=== PATIENT | female | born 1990 | race Caucasian/White ===

== ENCOUNTER 2023-02-13 03:29 | Emergency (ER) | payer OTHER, MEDICAID, SELFPAY ==
[2023-02-13] VITALS (7 sets, daily range): BP systolic 98–113; BP diastolic 56–75; PULSE 73–104; RESP 16–28; TEMP 37; O2SAT 92–99; BMI 20.3
--- NOTE | 2023-02-13 03:35 | W.ED.GENADLT ---
HPI - General Adult General: Chief complaint: Overdose Stated complaint: overdose Time Seen by Provider: 02/13/23 03:30 Source: patient and EMS Mode of arrival: EMS Limitations: no limitations History of Present Illness: 32-year-old female states that she had a history of drug abuse have been clean and has relapsed on meth over the last 3 days. States she has been using meth the last 3 days had showed up to someone's house who called EMS. Patient is clearly under influence of methamphetamine she will answer questions but is quite anxious here she denies any overdose attempt denies suicidal or homicidal. Associated symptoms: Deny chest pain, dyspnea, headache(s), nausea, rash or vomiting Review of Systems Const: Denies: fever(s), chills, body aches or change in appetite Eyes: Denies: blurry vision or eye discomfort ENMT: Denies: throat pain or dental pain Card: Denies: chest pain Resp: Denies: dyspnea GI: Denies: abdominal pain, nausea, vomiting or diarrhea : Denies: dysuria Musc: Denies: neck pain or back pain Skin/Breast: Denies: rash Neuro: Denies: headache(s) Psych: Denies: depression David/Lymph: Denies: easy bruising All/Imm: Denies: urticaria Physical Exam Const: COMMON NORMALS: patient oriented x3 OTHER: anxious under influence of meth HENMT: COMMON NORMALS: normocephalic and atraumatic HEAD & SCALP: normocephalic and atraumatic Eye: COMMON NORMALS: Equal, round and reactive pupils present and EOMs intact bilaterally PUPIL: Yes Equal, round and reactive pupils present Neck/C-Spine: COMMON NORMALS: full ROM and supple Chest: COMMONS NORMALS: normal inspection of the chest and normal palpation of entire chest wall Resp: COMMON NORMALS: normal respiratory effort, No retractions, No use of accessory muscles and clear to auscultation bilaterally AUSCULTATION: clear to auscultation bilaterally Cardio: COMMON NORMALS: regular rate, regular rhythm and No murmurs present (Cardio) RATE: regular rate RHYTHM: regular rhythm GI: COMMON NORMALS: Normal to inspection, nondistended, normoactive bowel sounds present, Soft to palpation, non-tender and no masses PALPATION: Yes Soft to palpation Extremity: COMMON NORMALS: normal to inspection and full ROM Neuro: COMMON NORMALS: patient oriented x3, moves all extremities and no focal motor deficits Psych: COMMON NORMALS: mental status grossly normal, Normal thought process present and cooperative THOUGHT PROCESS: Normal thought process present Skin: COMMON NORMALS: no rashes or lesions noted and no wounds GENERAL SKIN EXAM: no rashes or lesions noted Course Vital Signs: Vital signs: Vital Signs Temperature 98.6 F 02/13/23 03:30 Pulse Rate 80 02/13/23 13:04 Respiratory Rate 16 02/13/23 09:57 Blood Pressure 113/75 02/13/23 13:04 Pulse Oximetry 96 02/13/23 09:57 Oxygen Delivery Me thod Room Air 02/13/23 09:57 MDM - General Adult Medical Decision Making Patient presents with methamphetamine abuse she is not psychotic she is improved here after Ativan she is ambulatory she is stable for discharge at this time. Lab Data 02/13/23 03:40 02/13/23 03:40 Laboratory Results WBC 10.54 10^3/uL (3.29-11.43) 02/13/23 03:40 RBC 4.99 10^6/uL (3.85-5.65) 02/13/23 03:40 Hgb 15.00 g/dL (11.27-16.99) 02/13/23 03:40 Hct 44.0 % (36-47) 02/13/23 03:40 MCV 88.2 fl (85-98) 02/13/23 03:40 MCH 30.1 pg (27-33) 02/13/23 03:40 MCHC 34.1 g/dL (30-55) 02/13/23 03:40 RDW 12.3 % (12.1-15.1) 02/13/23 03:40 Plt Count 218 10^3/cmm (157-399) 02/13/23 03:40 MPV 10.0 fL (7.4-10.4) 02/13/23 03:40 Neut % (Auto) 66.2 % 02/13/23 03:40 Lymph % (Auto) 22.6 % 02/13/23 03:40 [place] % (Auto) 7.8 % 02/13/23 03:40 Eos % (Auto) 2.4 % 02/13/23 03:40 Baso % (Auto) 0.7 % 02/13/23 03:40 Neut # (Auto) 6.99 10^3/uL (1.8-7.7) 02/13/23 03:40 Lymph # (Auto) 2.4 10^3/uL (0.8-4.8) 02/13/23 03:40 [place] # (Auto) 0.8 10^3/uL (0.2-0.9) 02/13/23 03:40 Eos # (Auto) 0.3 10^3/uL (0.0-0.8) 02/13/23 03:40 Baso # (Auto) 0.1 10^3/uL (0.0-0.1) 02/13/23 03:40 Nucleated RBC % (auto) 0 % 02/13/23 03:40 Nucleated RBCs # 0.0 /100WBC 02/13/23 03:40 Sodium 140 mmol/L (136-145) 02/13/23 03:40 Potassium 3.2 mmol/L (3.5-5.1) L 02/13/23 03:40 Chloride 99 mmol/L (98-107) 02/13/23 03:40 Carbon Dioxide 29 mmol/L (22-29) 02/13/23 03:40 Anion Gap 15.2 (5-19) 02/13/23 03:40 BUN 16 mg/dL (6-20) 02/13/23 03:40 Creatinine 0.9 mg/dL (0.5-0.9) 02/13/23 03:40 GFR Calculation 72.1 mL/min (90-130) L 02/13/23 03:40 Glucose 91 mg/dL (65-115) 02/13/23 03:40 Calculated Osmolality 291 mOsm/kg (285-295) 02/13/23 03:40 Calcium 9.9 mg/dL (8.5-10.5) 02/13/23 03:40 Total Bilirubin 0.6 mg/dL (0.15-1.2) 02/13/23 03:40 AST 49 U/L (0-32) H 02/13/23 03:40 ALT 31 U/L (0-33) 02/13/23 03:40 Alkaline Phosphatase 61 U/L (35-105) 02/13/23 03:40 Total Protein 7.1 g/dL (6.6-8.7) 02/13/23 03:40 Albumin 4.7 g/dL (3.5-5.2) 02/13/23 03:40 Globulin 2.4 g/dL (1.3-4.6) 02/13/23 03:40 HCG, Qual Negative (Negative) 02/13/23 03:40 Salicylates 1.6 mg/dL (3-10) L 02/13/23 03:40 Acetaminophen < 5.0 ug/mL (10-30) L 02/13/23 03:40 Ethyl Alcohol < 10 mg/dL (0-10) 02/13/23 03:40 Discharge Plan Discharge Patient Disposition: Home Clinical Impression: Methamphetamine abuse Condition: Stable Discharge Orders: Discharge ED (Routine); Ordered 02/13/23 Ordered By: J Luis Abdul Discharge Diet: Advance as tolerated Discharge Activity: Resume usual activity Patient Instructions: Methamphetamine Use Disorder (ED) Coding Level of Care Code ED Audit Lead for Juany Stone
[2023-02-13] MEDS: LORazepam 2 mg/mL INJ 1 mL IV (03:38)
[2023-02-13 03:44] LABS: Basophils # 0.1 10^3/uL (0.0-0.1); Basophils % 0.7 %; Eosinophils # 0.3 10^3/uL (0.0-0.8); Eosinophils % 2.4 %; Lymphocytes # 2.4 10^3/uL (0.8-4.8); Lymphocytes % 22.6 %; Mean Corpuscular HGB Conc 34.1 g/dL (30-55); Mean Corpuscular Hemoglobin 30.1 pg (27-33); Mean Corpuscular Volume 88.2 fl (85-98); Monocytes # 0.8 10^3/uL (0.2-0.9); Monocytes % 7.8 %; Neutrophils # 6.99 10^3/uL (1.8-7.7); Neutrophils % 66.2 %; Nucleated Red Blood Cells % 0 %; Platelet Count 218 10^3/cmm (157-399); Red Blood Count 4.99 10^6/uL (3.85-5.65); Red Cell Distribution Width 12.3 % (12.1-15.1); White Blood Count 10.54 10^3/uL (3.29-11.43)
[2023-02-13 03:56] LABS: HCG, Serum Qual Negative (Negative)
[2023-02-13 04:01] LABS: Alanine Aminotransferase 31 U/L (0-33); Albumin Level 4.7 g/dL (3.5-5.2); Alkaline Phosphatase 61 U/L (35-105); Anion Gap 15.2 (5-19); Aspartate Amino Transferase 49 U/L (0-32); Blood Urea Nitrogen 16 mg/dL (6-20); Calcium 9.9 mg/dL (8.5-10.5); Carbon Dioxide 29 mmol/L (22-29); Chloride 99 mmol/L (98-107); Globulin 2.4 g/dL (1.3-4.6); Glomerular Filtration Rate 72.1 mL/min (90-130); Glucose 91 mg/dL (65-115); Osmolality Calculated 291 mOsm/kg (285-295); Potassium 3.2 mmol/L (3.5-5.1); Salicylate 1.6 mg/dL (3-10); Sodium 140 mmol/L (136-145); Total Bilirubin 0.6 mg/dL (0.15-1.2); Total Protein 7.1 g/dL (6.6-8.7)
[2023-02-13 04:03] LABS: Acetaminophen < 5.0 ug/mL (10-30); Alcohol Level < 10 mg/dL (0-10)
--- NOTE | 2023-02-13 04:28 | PC.NURSE ---
pt appears to be resting at this time, no acute distress. bilateral, even chest rise with unlabored respirations.
--- NOTE | 2023-02-13 05:09 | PC.NURSE ---
pt appears to be resting at this time, in no acute distress.
--- NOTE | 2023-02-13 13:04 | PC.NURSE ---
ASSUMED CARE OF PATIENT AT 1300.
== END 2023-02-13 13:05 | disposition home or self-care (01) ==
PROVIDERS: Emergency Provider Emergency Medicine
DX: F15.10 Other stimulant abuse, uncomplicated (principal)
CPT/HCPCS: 80053; 80307; 84703; 85025; 96374; 99284; J2060